=== PATIENT | male | born 1955 | race Caucasian/White ===

== ENCOUNTER 2023-03-05 20:03 | Emergency (ER) | payer MEDICARE, OTHER ==
[2023-03-05] MEDS ORDERED: Sodium Chloride 0.9% 1,000 ML ONE (20:23)
[2023-03-05] MEDS ORDERED: Boostrix 0.5 ML (Tdap) VIAL (>/=7 yrs of age) ONE (20:23)
[2023-03-05 21:00] LABS: #Basophils 0.1 thou/uL (0.0-0.2); #Eosinphils 0.1 thou/uL (0.0-0.7); #Lymphocytes 1.9 thou/uL (1.20-3.40); #Monocytes 0.7 thou/uL (0.11-0.59); #Neutrophils 9.9 thou/uL (1.40-6.50); %Eosinophils 0.8 % (0.0-10.0); %Lymphocytes 14.9 % (21.0-51.0); %Monocytes 5.7 % (0.0-10.0); %Neutrophils 77.7 % (42.0-75.0); Hematocrit 46.4 % (42.0-52.0); Hemoglobin 15.5 g/dL (14.0-18.0); Mean Corpuscular HGB CONC 33.4 g/dL (32.0-36.0); Mean Corpuscular Volume 89.9 fl (78.0-98.0); Mean Platelet Volume 7.5 fL (7.4-10.4); Platelet Count 255 10x3/uL (130-400); RBC Distribution Width 12.9 % (11.5-14.5); Red Blood Cell (RBC) Count 5.16 mill/uL (4.70-6.10); White Blood Cell (WBC) Count 12.7 10x3/uL (4.8-10.8)
[2023-03-05 21:02] LABS: ALT (SGPT) 35 U/L (8-55); AST (SGOT) 38 U/L (5-34); Albumin 3.9 g/dL (3.4-4.8); Alcohol 143.3 mg/dL (Less than 10); Alkaline Phosphatase 52 U/L (40-110); Anion Gap 16 mmol/L (10-20); BUN (Urea Nitrogen) 12 mg/dL (8.4-25.7); Bilirubin, Total 0.4 mg/dL (0.2-1.2); Calc. Creatinine Clearance 0 mL/min (70-130); Calcium 8.3 mg/dL (7.8-10.44); Carbon Dioxide 22 mmol/L (23-31); Chloride 100 mmol/L (98-107); Estimated GFR 63; Globulin 2.8 g/dL (2.4-3.5); Glucose 211 mg/dL (80-115); Potassium 3.2 mmol/L (3.5-5.1); Protein, Total 6.7 g/dL (5.8-8.1); Sodium 135 mmol/L (136-145)
[2023-03-05] MEDS ORDERED: Bacitracin 1 PK ONE (21:59)
[2023-03-05] MEDS ORDERED: Lidocaine 1% PF 5 ML VIAL ONE (21:59)
[2023-03-05] MEDS ORDERED: Ampicillin/Sulbactam 3 GM VIAL ONE (23:28)
[2023-03-05] MEDS ORDERED: Sodium Chloride 0.9% 100 ML ONE (23:28)
== END 2023-03-06 00:54 | disposition short-term general hospital (02) ==
LOC: MADERS 20:03
DX: S12.600A Unspecified displaced fracture of seventh cervical vertebra, initial encounter for closed fracture (principal); S02.2XXB Fracture of nasal bones, initial encounter for open fracture; S02.609A Fracture of mandible, unspecified, initial encounter for closed fracture; I10 Essential (primary) hypertension; Z23 Encounter for immunization; V29.99XA Rider (driver) (passenger) of other motorcycle injured in unspecified traffic accident, initial encounter
CPT/HCPCS: 12002; 70450; 70486; 71045; 72125; 80053; 80307; 85025; 90715; 94760; 96365; G0390; J0295; J3490; J7050

== ENCOUNTER 2023-03-12 08:43 | Emergency (ER) | payer MEDICARE | END 2023-03-12 09:15 | disposition home or self-care (01) | LOC: MADERS 08:43 | DX: S01.01XD Laceration without foreign body of scalp, subsequent encounter (principal); E78.5 Hyperlipidemia, unspecified; I10 Essential (primary) hypertension; Z79.899 Other long term (current) drug therapy; X58.XXXD Exposure to other specified factors, subsequent encounter ==

== ENCOUNTER 2023-03-16 11:48 | Emergency (ER) | payer MEDICARE, OTHER | END 2023-03-16 13:39 | disposition home or self-care (01) | LOC: MADERS 11:48 | DX: S00.83XA Contusion of other part of head, initial encounter (principal); V89.9XXA Person injured in unspecified vehicle accident, initial encounter | CPT/HCPCS: 70450 ==